=== PATIENT | female | born 1935 | race Hispanic/Latino ===

== ENCOUNTER 2024-03-26 00:15 | Emergency (ER) | payer MEDICARE ==
[~2024-03-26] VITALS: Ht 142.2 cm; Wt 49.9 kg
[2024-03-26] MEDS: ACETAMINOPHEN 325 MG TAB PO STA (00:41)
[2024-03-26] MEDS ORDERED: PIPERACILLIN/TAZOBACTAM 3.375 GM VIAL ONE (00:42)
[2024-03-26] MEDS: SODIUM CHLORIDE 0.9% 1000ML 1,000 ML IV STA (00:49)
[2024-03-26 00:59] LABS: BASOPHILS # (AUTO) 0.1 (0.0-0.1); BASOPHILS % 0.4 % (0.0-1.0); EOSINOPHILS # (AUTO) 0.1 (0.0-0.4); EOSINOPHILS % 0.6 % (0.0-6.0); HEMATOCRIT 31.2 % (34.2-44.1); HEMOGLOBIN 9.7 g/dL (12.0-16.0); LYMPHOCYTES # (AUTO) 2.8 (1.0-3.2); LYMPHOCYTES % 13.7 % (18.0-39.1); MEAN CORPUSCULAR HEMOGLOBIN 31.1 pg (28-32); MEAN CORPUSCULAR HGB CONC 31.1 g/dL (31-35); MONOCYTES # (AUTO) 0.5 (0.2-0.8); MONOCYTES % 2.6 % (4.4-11.3); NEUTROPHILS # (AUTO) 16.6 (2.1-6.9); NEUTROPHILS % 81.7 % (38.7-80.0); PLATELET COUNT 530 x10e3/uL (140-360); RED BLOOD COUNT 3.12 x10e6/uL (3.6-5.1); RED CELL DISTRIBUTION WIDTH 16.3 % (11.7-14.4); WHITE BLOOD COUNT 20.26 x10e3/uL (4.8-10.8)
[2024-03-26 01:15] LABS: ALBUMIN 3.5 g/dL (3.5-5.0); ALBUMIN/GLOBULIN RATIO 0.8 (0.8-2.0); ANION GAP 15.9 mmol/L (8-16); BILIRUBIN,TOTAL 0.6 mg/dL (0.2-1.2); CALCIUM 8.5 mg/dL (8.4-10.2); CREATININE, SERUM 3.05 mg/dL (0.57-1.11); POTASSIUM 4.9 mmol/L (3.5-5.1); TOTAL PROTEIN 7.9 g/dL (6.5-8.1)
[2024-03-26 01:29] LABS: INFLUENZAE A&B ANTIGEN (RAPID) NEGATIVE (NEGATIVE); RESPIRATORY SYNC. VIRUS NEGATIVE (NEGATIVE)
[2024-03-26 01:43] LABS: B-TYPE NATRIURETIC PEPTIDE2 1642.2 pg/mL (0-100)
[2024-03-26 01:52] LABS: TROPONIN I 1.157 ng/mL (0-0.300)
[2024-03-26] MEDS: ASPIRIN 325 MG TAB PO STA (02:43)
[2024-03-26 03:25] VITALS: TEMP 98.9
[2024-03-26 04:06] LABS: CLARITY,URINE CLEAR (CLEAR); COLOR,URINE YELLOW (YELLOW); GLUCOSE, URINE NEGATIVE (NEGATIVE); KETONES,URINE NEGATIVE (NEGATIVE); LEUKOCYTE ESTERASE ,URINE NEGATIVE (NEGATIVE); NITRITE,URINE NEGATIVE (NEGATIVE); PH,URINE 5.5 (5 - 7); PROTEIN,URINE DIPSTICK >=300 (NEGATIVE); URINE UROBILINOGEN 0.2 mg/dL (0.2 - 1)
[2024-03-26 04:07] LABS: BILIRUBIN,URINE NEGATIVE (NEGATIVE)
[2024-03-26 04:30] LABS: ABG HCO3 18 mmol/L (22-26); ABG PCO2 32 mmHg (35-45); ABG PH 7.37 (7.35-7.45); ABG PO2 70 mmHg (80-105); ABG TCO2 19
[2024-03-26 04:30] LABS: BACTERIA,URINE MODERATE /HPF; EPITHELIAL CELLS,URINE MODERATE /LPF; MUCUS,URINE FEW (RARE); RENAL EPITHELIAL CELLS,URINE FEW; TRANSITIONAL EPI CELLS,URINE FEW
[2024-03-26 05:30] VITALS: PULSE 75; RESP 22
[2024-03-26 06:03] VITALS: BP 164/65; PULSE 74; RESP 17; TEMP 99.2; O2SAT 99
== END 2024-03-26 06:25 | disposition short-term general hospital (02) ==
LOC: ER 00:23
DX: J18.9 Pneumonia, unspecified organism (principal); I31.39 Other pericardial effusion (noninflammatory); J81.1 Chronic pulmonary edema; A41.9 Sepsis, unspecified organism; N28.9 Disorder of kidney and ureter, unspecified; R79.89 Other specified abnormal findings of blood chemistry; I10 Essential (primary) hypertension; Z11.52 Encounter for screening for COVID-19
CPT/HCPCS: 36415; 36600; 71045; 71250; 74176; 80053; 81001; 82550; 82805; 83605; 83690; 83880; 84484; 85025; 87040; 87086; 87400; 87420; 93005; 99284; C9113; J0456; J2543; J7030; J7050; U0002; J2470